=== PATIENT | female | born 2000 | race Two or more races ===

== ENCOUNTER 2024-05-30 13:56 | Inpatient (IN) | payer MEDICAID, OTHER ==
[~2024-05-30] VITALS: Ht 157.5 cm; Wt 62.1 kg
--- NOTE | 2024-05-30 15:11 | ED.PDOC ---
Eye-HPI HPI Comments 23 year old female presents to the ED with chief complaint of uneven pupils and blurry vision. Patient reports she has been experiencing blurred vision for the past 3 days with associated headache, left eye pain, dryness, and eyelid swelling. Patient relays that her blurred vision is normally relieved when blinking, but today her mother noticed her left pupil has been larger than the right pupil, prompting her to go to urgent Care, who referred her to the ER. Patient states she had history of LASIK surgery in 2020 with no follow up with machine tester since then as she has had no vision issues untill now. Patient denies any N/V, fever, chills, vision loss, or eye discharge. Chief Complaint: Eye Problem Time Seen by MD: 15:05 Primary Care Provider: YONATAN AGUAYO Reviewed Notes: Nurses Notes, Medications, Allergies Allergies: Coded Allergies: NO KNOWN ALLERGIES (Unverified , 05/30/24) Information Source: Patient Mode of Arrival: Ambulatory Timing: Days Duration: Since onset Prehospital treatment: None Quality: Pain Eye Location: Bilateral Lids: Location (Left eyelid), Swelling Conjunctiva: Normal Pupils: Unequal EOM: Normal Fundus: Normal Onset: Spontaneous Throat Exposed to: None History of: Post-operative Last Tetanus: Unknown Past Medical History Past Medical History (Other): acne, on isotretinoin Surgical History (Other): Lasik eye surgery x2021 INVENTORY AND PRICING ASSOCIATE History: No Pertinent INVENTORY AND PRICING ASSOCIATE History Family History Family History: Reviewed,noncontributory to illness Social History Smoker: Non-Smoker Alcohol: Denies ETOH Use Drugs: Denies Drug Use Lives In: Home Constitutional: denies: chills, diaphoresis, fatigue, fever, malaise, sweats, weakness, others EENTM: reports: blurred vision, eye pain, others (Pupils uneven, dry eyes, left swollen eyelid); denies: double vision, ear bleeding, ear discharge, ear drainage, ear pain, ear ringing, eye redness, hearing loss, mouth pain, mouth swelling, nasal discharge, nose bleeding, nose congestion, nose pain, keyla tophobia, tearing, throat pain, throat swelling, voice changes Respiratory: denies: cough, hemoptysis, orthopnea, SOB at rest, shortness of breath, SOB with excertion, stridor, wheezing, others Cardiovascular: denies: chest pain, dizzy spells, diaphoresis, Dyspnea on exertion, edema, irregular heart beat, left arm pain, lightheadedness, p alpitations, PND, syncope, others Gastrointestinal: denies: abdomen distended, abdominal pain, blood streaked bowels, constipated, diarrhea, dysphagia, difficulty swallowing, hematemesis, melena, nausea, poor appetite, poor fluid intake, rectal bleeding, rectal pain, vomiting, others Genitourinary: denies: abnormal vagina bleeding, burning, dyspareunia, dysuria, flank pain, frequency, hematuria, incontinence, pain, , vagina discharge, urgency, others Neurological: reports: headache; denies: dizziness, fainting, left sided numbness, left sided weakness, numbness, paresthesia, pre-existing deficit, right sided numbness, right sided weakness, seizure, speech problems, tingling, tremors, weakness, others Musculoskeletal: denies: back pain, gout, joint pain, joint swelling, muscle pain, muscle stiffness, neck pain, others Integumetry: denies: bruises, change in color, change in hair/nails, dryness, laceration, lesions, lumps, rash, wounds, others Allergic/Immunocompromised: denies: Difficulty Healing, Frequent Infections, Hives, Itching, others Hematologic/Lymphatic: denies: anemia, blood clots, easy bleeding, easy bruising, swollen glands, others Endocrine: denies: excessive hunger, excessive sweating, excessive thirst, excessive urination, flushing, intolerance to cold, intolerance to heat, unexplained weight gain, unexplained weight loss, others Psychiatric: denies: anxiety, bipolar disorder, depression, hopeless, panic disorder, schizophrenia, sleepless, suicidal, others All Other Systems: Reviewed and Negative Physical Exam General Appearance: No Apparent Distress HEENT: Other (Anisocoria. Left pupil 4 mm and reactive, right pupil 3 mm and reactive. Extraocular movements are intact. Conjunctiva unremarkable. No periorbital edema or discoloration.) Neck: Full Range of Motion, Normal Inspection Respiratory: Lungs Clear, No Accessory Muscle Use, No Respiratory Distress, Normal Breath Sounds Cardiovascular: No Edema, No JVD, Regular Rate/Rhythm Breast Exam: Deferred Gastrointestinal: Non Tender, Soft Genitalia: Deferred Pelvic: Deferred Rectal: Deferred Extremities: Normal inspection, Normal range of motion, Non-tender, No pedal edema Neurologic: Alert (Oriented x4), Normal Affect, Normal Mood, Other (Ambulatory without difficulty. Cranial nerves 2-12 intact except for presence of anisocoria) Cerebellar Function: NOT DONE Reflexes: NOT DONE Skin: Dry, Normal Color, Warm Lymphatic: NOT DONE Was a procedure done? Was a procedure done?: No EENT DIFF Eye: Other (Physiologic, uveitis, glaucoma, intra-ocular neoplasm, Paloma's syndrome, brain or carotid artery aneurysm/dissection, cavernous sinus lesion, MS, among others) X-Ray, Labs, Meds, VS Vital Signs Date Time Temp Pulse Resp B/P (MAP) Pulse Ox O2 Delivery O2 Flow Rate FiO2 05/30/24 15:55 97.7 05/30/24 15:42 98.9 79 16 135/83 (100) 95 98.9 05/30/24 15:42 79 16 95 Room Air 05/30/24 14:03 98.2 75 16 137/68 (91) 99 Lab Test 05/30/24 15:44 Range/Units White Blood Count 6.3 4.4-10.8 10^3/uL Red Blood Count 4.62 4.0-5.20 10^6/uL Hemoglobin 13.4 12.2-16.2 g/dL Hematocrit 38.6 36.0-46.0 % Mean Corpuscular Volume 83.7 80.0-100.0 fL Mean Corpuscular Hemoglobin 29.1 28.0-32.0 pg Mean Corpuscular Hemoglobin Concent 34.7 32.0-36.0 g/dL Red Cell Distribution Width 13.7 11.8-14.3 % Platelet Count 266 140-450 10^3/uL Mean Platelet Volume 7.6 6.9-10.8 fL Neutrophils (%) (Auto) 55.9 37.0-80.0 % Lymphocytes (%) (Auto) 31.1 10.0-50.0 % Monocytes (%) (Auto) 9.2 0.0-12.0 % Eosinophils (%) (Auto) 2.9 0.0-7.0 % Basophils (%) (Auto) 0.9 0.0-2.0 % Neutrophils # (Auto) 3.5 1.6-8.6 10 ^3/uL Lymphocytes # (Auto) 1.9 0.4-5.4 10 ^3/uL Monocytes # (Auto) 0.6 0-1.3 10 ^3/uL Eosinophils # (Auto) 0.2 0-0.8 10 ^3/uL Basophils # (Auto) 0.1 0-0.2 10 ^3/uL Nucleated Red Blood Cells 0.1 % Prothrombin Time 12.3 H 9.3-11.8 sec Prothrombin Time INR 1.17 H 0.9-1.15 Activated Partial Thromboplast Time 28.2 24.5-34.5 SEC Sodium Level 139 136-145 mmol/L Potassium Level 3.9 3.5-5.1 mmol/L Chloride Level 106 98-107 mmol/L Carbon Dioxide Level 26 20-31 mmol/L Anion Gap 7 5-15 Blood Urea Nitrogen 12 9-23 mg/dL Creatinine 0.73 0.550-1.02 mg/dL Glomerular Filtration Rate Calc 119 >90 mL/min BUN/Creatinine Ratio 16.4 10.0-20.0 Serum Glucose 98 74-106 mg/dL Calcium Level 10.0 8.7-10.4 mg/dL Beta HCG, Quantitative < 0.0 L 1.5-4.2 mIU/mL Current Medications Medications (Trade) Dose Ordered Sig/Summer Route Start Time Stop Time Status Last Admin Acetaminophen (Tylenol Tablet) 1,000 mg ONCE ONCE PO 05/30/24 15:15 05/30/24 15:16 DC 05/30/24 15:55 PROCEDURE(s): HWOCT - HEAD WITHOUT CONTRAST REASON: L anisocoria ORDER NUMBER(s): [id number], ACCESSION NUMBER(s): [id number] CT HEAD WITHOUT CONTRAST INDICATION: L anisocoria COMPARISON: None TECHNIQUE: CT of the head without intravenous contrast. RADIATION DOSE: CTDIvol: 57.72 mGy, DLP: 1021.69 mGy*cm FINDINGS: There is no evidence of acute intracranial hemorrhage, extra-axial collection, mass effect, midline shift, or hydrocephalus. The ventricles, sulci and cisterns are age appropriate. The mccoy-white differentiation is intact. Calvarium is intact. The right cerebellar tonsil protrudes 5 mm below the level of the foramen magnum. There is mild mucosal thickening in the left maxillary sinus. The mastoids are well aerated. The orbits are unremarkable. IMPRESSION: 1. No evidence of acute intracranial abnormalities. If symptoms persist, worsen, or are otherwise clinically unexplained, consider MRI. 2. Low-lying cerebellar tonsils (5 mm). Angio Head/Neck: Findings: Neck: The aortic arch and great vessels are within normal limits. The common carotid arteries, carotid bifurcation, internal and external carotid arteries are within normal limits. Vertebral arteries are within normal limits, with right dominant. No evidence of aneurysm, dissection, or stenosis. The pharynx and upper airway appear normal with no evidence of stricture or focal lesion. No evidence of cervical lymphadenopathy. The thyroid, submandibular, and parotid glands appear normal. Osseous structures and lung apices appear unremarkable. Brain: Intracranial Anterior Circulation: The RIGHT anterior circulation including the right internal carotid artery, middle cerebral artery, and anterior cerebral artery demonstrates no abnormality . The LEFT anterior circulation including the left internal carotid artery, middle cerebral artery, and anterior cerebral artery demonstrates no abnormality. The anterior communicating artery is unremarkable. No posterior communicating arteries are identified. Vertebrobasilar Circulation: The basilar artery is unremarkable. The RIGHT posterior cerebral artery, superior cerebellar artery, and posterior inferior cerebellar artery demonstrate no abnormality. The LEFT posterior cerebral artery, superior cerebellar artery, and posterior inferior cerebellar artery demonstrate no abnormality. Other: The visualized dural sinuses and intradural venous system are unremarkable. No evidence of intracranial mass, mass effect, or abnormal enhancement. The skull base, calvaria, orbits, and overlying soft tissues are intact. The paranasal sinuses, mastoid air cells, and middle ear cavities are clear and well aerated. Impression: 1. Unremarkable angiogram of the head and neck. X-Ray, Labs, Meds, VS Comment 23-year-old female with no significant past medical history presenting with left eye blurred vision, left eye discomfort and anisocoria Vitals unremarkable Exam remarkable for intact cranial nerves except for the presence of anisocoria. The left pupil is 4 mm and reactive, the right pupil is 3 mm and reactive. Rhythm strip independently interpreted by me: Sinus rhythm, rate 75, no ectopy. CBC, basic metabolic panel, hCG and coagulation panel unremarkable for any abnormality of acute significance CT head without contrast unremarkable CT angio head and neck Patient treated with the following in the ED: Tylenol 1 g p.o. Re-evaluation, patient states her eye discomfort has improved. Vitals remained stable, and she has had no new neurologic changes in the ED. Plan is to transfer the patient for higher level of care, as we do not have ophthalmologic services here. Patient will also require brain MRI and neuro evaluation. Attempted transfer to [facility] and [facility]. Both are at capacity and declined transfer. I discussed the case with Dr. Aj Roth, machine tester at [facility]. She stated the patient does not need emergent ophthalmologic evaluation, but does feel the patient would benefit from brain MRI and Neurology evaluation. She felt that the current symptoms are more appropriately address initially by Neurology. If no finding, then the patient can follow-up with an machine tester as an outpatient. Plan will be to admit the patient here for brain MRI and Neurology evaluation. Discussed with Dr. Shaw who will admit the patient. Time of 1ST Reevaluation: 16:05 Reevaluation 1ST: Unchanged Time of 2ND Reevaluation: 18:54 Reevaluation 2ND: Improved Patient Education/Counseling: Diagnosis, Treatment Family Education/Counseling: No Family Present Departure 1 Departure Time of Disposition: 18:54 Impression: Primary Impression: Anisocoria Disposition: ADMITTED INPATIENT Admit to: Tele Condition: Guarded Critical Care Note Critical Care Time?: No Stability Stability form required: No Heart Score Heart Score: Heart Score Response (Comments) Value History N/A 0 EKG N/A 0 Age N/A 0 Risk Factors N/A 0 Troponin N/A 0 Total 0 I personally scribed for ONEAL NESS MD ([email or web address]) on 05/30/24 at 15:11. Electronically submitted by Zeferino Zamorano ([email or web address]). I personally scribed for ONEAL NESS MD ([email or web address]) on 05/30/24 at 18:20. Electronically submitted by Zeferino Zamorano ([email or web address]). I personally scribed for ONEAL NESS MD ([email or web address]) on 05/30/24 at 19:22. Electronically submitted by Zeferino Zamorano ([email or web address]). ONEAL NESS MD May 30, 2024 15:11
[2024-05-30] MEDS: ACETAMINOPHEN 500 MG TAB PO ONE (15:55)
[2024-05-30 16:01] LABS: Basophils # (auto) 0.1 10 ^3/uL (0-0.2); Basophils % (auto) 0.9 % (0.0-2.0); Eosinophils # (auto) 0.2 10 ^3/uL (0-0.8); Eosinophils % (auto) 2.9 % (0.0-7.0); Hematocrit 38.6 % (36.0-46.0); Hemoglobin 13.4 g/dL (12.2-16.2); Lymphocytes # (auto) 1.9 10 ^3/uL (0.4-5.4); Lymphocytes % (auto) 31.1 % (10.0-50.0); Mean Corpuscular Hemoglobin 29.1 pg (28.0-32.0); Mean Corpuscular Hgb Conc. 34.7 g/dL (32.0-36.0); Mean Corpuscular Volume 83.7 fL (80.0-100.0); Monocytes # (auto) 0.6 10 ^3/uL (0-1.3); Monocytes % (auto) 9.2 % (0.0-12.0); Neutrophils # (auto) 3.5 10 ^3/uL (1.6-8.6); Neutrophils % (auto) 55.9 % (37.0-80.0); Nucleated Red Blood Cells % 0.1 %; Platelet Count (auto) 266 10^3/uL (140-450); Red Blood Cells 4.62 10^6/uL (4.0-5.20); Red Cell Distribution Width 13.7 % (11.8-14.3); White Blood Cell 6.3 10^3/uL (4.4-10.8)
[2024-05-30 16:13] LABS: Anion Gap 7 (5-15); Carbon Dioxide 26 mmol/L (20-31); Chloride 106 mmol/L (98-107); Potassium 3.9 mmol/L (3.5-5.1); Sodium 139 mmol/L (136-145)
[2024-05-30 16:19] LABS: BUN/Creatinine Ratio 16.4 (10.0-20.0); Blood Urea Nitrogen 12 mg/dL (9-23); Glucose 98 mg/dL (74-106)
[2024-05-30 16:34] LABS: INR 1.17 (0.9-1.15); Partial Thromboplastin Time 28.2 SEC (24.5-34.5); Prothrombin Time 12.3 sec (9.3-11.8)
--- NOTE | 2024-05-30 17:52 | DVH ---
CT HEAD WITHOUT CONTRAST INDICATION: L anisocoria COMPARISON: None TECHNIQUE: CT of the head without intravenous contrast. RADIATION DOSE: CTDIvol: 57.72 mGy, DLP: 1021.69 mGy*cm FINDINGS: There is no evidence of acute intracranial hemorrhage, extra-axial collection, mass effect, midline s hift, or hydrocephalus. The ventricles, sulci and cisterns are age appropriate. The mccoy-white dif ferentiation is intact. Calvarium is intact. The right cerebellar tonsil protrudes 5 mm below the level of the foramen magnum. There is mild mucosal thickening in the left maxillary sinus. The mastoi ds are well aerated. The orbits are unremarkable. IMPRESSION: 1. No evidence of acute intracranial abnormalities. If symptoms persist, worsen, or are otherwise cl inically unexplained, consider MRI. 2. Low-lying cerebellar tonsils (5 mm).
[2024-05-30] MEDS: IOHEXOL 350 MG/ML 100ML IJ ONE (18:29)
--- NOTE | 2024-05-30 19:19 | DVH ---
EXAM: CT ANGIO HEAD/NECK INDICATION: L anisocoria EXAM DATE: 05/30/2024 06:34 PM COMPARISON: None TECHNIQUE: A noncontrast dataset was obtained. Subsequently, a volumetric data acquisition of the h ead and neck was obtained during the arterial phase of enhancement. A total of 60 mL of Omnipaque 350 was administered intravenously. One or more of the following radiation dose reduction techniques wer e used for this examination: automated exposure control, adjustment of the mA and/or kV according to patient size, use of iterative reconstruction technique. 3-D postprocessing is performed by technologist including MIP imaging Determination of the degree of stenosis in the internal carotid arteries is obtained using measureme nts of distal internal carotid diameter (directly or indirectly) as the denominator for stenosis mandi urement. The method utilized is similar to that utilized in the [place] Symptomatic Carotid E ndarterectomy Trial (NASCET) method. If the degree of stenosis is greater than 30%, the actual percen tage stenosis is given in the body of the report. Radiation Dose Information: CT Dose: CTDI volume is 22.32 mGy. Dose-length product is 818.41 mGy*cm Findings: Neck: The aortic arch and great vessels are within normal limits. The common carotid arteries, carotid bifu rcation, internal and external carotid arteries are within normal limits. Vertebral arteries are with in normal limits, with right dominant. No evidence of aneurysm, dissection, or stenosis. The pharynx and upper airway appear normal with no evidence of stricture or focal lesion. No evidence of cervical lymphadenopathy. The thyroid, submandibular, and parotid glands appear normal. Osseous structures and lung apices appear unremarkable. Brain: Intracranial Anterior Circulation: The RIGHT anterior circulation including the right internal carotid artery, middle cerebral artery, a nd anterior cerebral artery demonstrates no abnormality. The LEFT anterior circulation including the left internal carotid artery, middle cerebral artery, and anterior cerebral artery demonstrates no abnormality. The anterior communicating artery is unremarkable. No posterior communicating arteries are identified. Vertebrobasilar Circulation: The basilar artery is unremarkable. The RIGHT posterior cerebral artery, superior cerebellar artery, and posterior inferior cerebellar ar mervat demonstrate no abnormality. The LEFT posterior cerebral artery, superior cerebellar artery, and posterior inferior cerebellar art duran demonstrate no abnormality. Other: The visualized dural sinuses and intradural venous system are unremarkable. No evidence of intracranial mass, mass effect, or abnormal enhancement. The skull base, calvaria, orbits, and overlying soft tissues are intact. The paranasal sinuses, masto id air cells, and middle ear cavities are clear and well aerated. Impression: 1. Unremarkable angiogram of the head and neck.
--- NOTE | 2024-05-30 20:55 | DVHHP2 ---
History of Present Illness Reason for Visit: Blurry vision History of Present Illness 23-year-old female with no past medical history comes to the ED for evaluation of uneven pupils and blurry vision patient states for the past 3 days she has been having headaches nausea vomiting and swelling of the left eye patient was initially evaluated in urgent care and from urgent care they were recommended that the patient should be seen in the ED on initial ED evaluation ophthalmology was called and ophthalmology recommended that this was not an ophthalmological emergency however patient should be admitted to an inpatient setting in order to complete an MRI and have an evaluation by Neurology to confirmed that this is not an acute neurological defect Patient with no other symptoms at this point in time no fevers chills cough cold or secondary issue secondary to trauma we will admit for further evaluation and management as per ED recommendation Review of Systems Constitutional: No: Fever, Chills, Sweats, Weakness, Malaise, Other Eyes: Vision change; No: Pain, Conjunctivae inflammation, Eyelid inflammation, Other, Redness ENT: No: Ear pain, Ear discharge, Nose pain, Nose discharge, Nose congestion, Mouth pain, Mouth swelling, Throat pain, Throat swelling, Other Respiratory: No: Cough, Dry, Shortness of breath, SOB with excertion, Wheezing, Hemoptysis, Pleuritic Pain, Sputum, Wheezing, Other Cardiovascular: No: Chest Pain, Palpitations, Orthopnea, Paroxysmal Noc. Dyspnea, Edema, Lt Headedness, Other Gastrointestinal: No: Nausea, Vomiting, Abdominal Pain, Diarrhea, Constipation, Melena, Hematochezia, Other Genitourinary: No Dysuria, No Frequency, No Incontinence, No Hematuria, No Retention, No Other Musculoskeletal: No: other, neck pain, shoulder pain, arm pain, back pain, hand pain, leg pain, foot pain Skin: No: Rash, Lesions, Jaundice, Bruising, Other Neurological: No: Weakness, Numbness, Incoordination, Change in speech, Confusion, Seizures, Other Allergies: Coded Allergies: NO KNOWN ALLERGIES (Unverified , 05/30/24) Exam Vital Signs Vital Signs Date Time Temp Pulse Resp B/P (MAP) Pulse Ox O2 Delivery O2 Flow Rate FiO2 05/30/24 15:55 97.7 05/30/24 15:42 79 16 135/83 (100) 95 05/30/24 15:42 Room Air General Appearance: Oriented X3, Cooperative HEENT: Atraumatic, PERRLA (Pupils even), EOMI Respiratory: Clear to auscultation, Normal air movement Cardiovascular: Regular rate, Normal S1, Normal S2 Abdominal: Normal bowel sounds, Soft Extremities: No clubbing, No cyanosis Skin: No rashes, No breakdown Neuro: Normal gait, Normal speech Psych/Mental Status: Mood NL Labs/Xrays Labs Test 05/30/24 15:44 Range/Units White Blood Count 6.3 4.4-10.8 10^3/uL Red Blood Count 4.62 4.0-5.20 10^6/uL Hemoglobin 13.4 12.2-16.2 g/dL Hematocrit 38.6 36.0-46.0 % Mean Corpuscular Volume 83.7 80.0-100.0 fL Mean Corpuscular Hemoglobin 29.1 28.0-32.0 pg Mean Corpuscular Hemoglobin Concent 34.7 32.0-36.0 g/dL Red Cell Distribution Width 13.7 11.8-14.3 % Platelet Count 266 140-450 10^3/uL Mean Platelet Volume 7.6 6.9-10.8 fL Neutrophils (%) (Auto) 55.9 37.0-80.0 % Lymphocytes (%) (Auto) 31.1 10.0-50.0 % Monocytes (%) (Auto) 9.2 0.0-12.0 % Eosinophils (%) (Auto) 2.9 0.0-7.0 % Basophils (%) (Auto) 0.9 0.0-2.0 % Neutrophils # (Auto) 3.5 1.6-8.6 10 ^3/uL Lymphocytes # (Auto) 1.9 0.4-5.4 10 ^3/uL Monocytes # (Auto) 0.6 0-1.3 10 ^3/uL Eosinophils # (Auto) 0.2 0-0.8 10 ^3/uL Basophils # (Auto) 0.1 0-0.2 10 ^3/uL Nucleated Red Blood Cells 0.1 % Prothrombin Time 12.3 H 9.3-11.8 sec Prothrombin Time INR 1.17 H 0.9-1.15 Activated Partial Thromboplast Time 28.2 24.5-34.5 SEC Sodium Level 139 136-145 mmol/L Potassium Level 3.9 3.5-5.1 mmol/L Chloride Level 106 98-107 mmol/L Carbon Dioxide Level 26 20-31 mmol/L Anion Gap 7 5-15 Blood Urea Nitrogen 12 9-23 mg/dL Creatinine 0.73 0.550-1.02 mg/dL Glomerular Filtration Rate Calc 119 >90 mL/min BUN/Creatinine Ratio 16.4 10.0-20.0 Serum Glucose 98 74-106 mg/dL Calcium Level 10.0 8.7-10.4 mg/dL Beta HCG, Quantitative < 0.0 L 1.5-4.2 mIU/mL Assessment/Plan Assessment/Plan Admit to [facility] Uneven pupils Unknown etiology CT scan was completed No acute signs of infection including meningitis No acute signs of pseudotumor cerebri Hydrocephalus Or any other emergent or urgent known neurological deficits Patient with anisocoria recommended for MRI and neurology evaluation Plan discussed with: Patient My Orders Orders - KAYA VELEZ MD Procedure Category Date Status Time * Neurology Consult CONS 05/30/24 Transmitted 20:49 Admit ADMIT 05/30/24 Transmitted 20:49 Code Status CODE 05/30/24 Transmitted 20:49 Vital Signs [facility] 05/30/24 In Process 20:49 Review Orders With SHWETA 05/30/24 In Process Adm. 20:49 Regular Diet DIET 05/31/24 Transmitted Breakfast Sodium Chloride 0.9% [facility] 05/30/24 Logged 21:00 Lorazepam Tablet PHA 05/30/24 Logged (Ativan Tablet) 21:00 Alum & Mag PHA 05/30/24 Logged Hydrox-Simethicone 21:00 Docusate Sodium PHA 05/30/24 Logged Capsule (Colace 21:00 Acetaminophen Tablet PHA 05/30/24 Logged (Tylenol Tablet) 21:00 Temazepam (Restoril) PHA 05/30/24 Logged 21:00 Notify Md Of Changes SHWETA 05/30/24 In Process From Base 20:49 Advance Directive SHWETA 05/30/24 In Process 20:49 Basic Metabolic Panel LAB 05/31/24 Verified 04:00 Complete Blood Count LAB 05/31/24 Verified 04:00 Patient Condition ORDERS 05/30/24 Transmitted 20:49 Allergies SHWETA 05/30/24 In Process 20:49 Hydrocodone-Acet PHA 05/30/24 Logged 5/325mg Tab ([place] 21:00 Ondansetron Hcl PHA 05/30/24 Logged (Zofran) 21:00 Morphine 2mg Iv Q4hprn PHA 05/30/24 Transmitted 21:00 Notify Md Of Changes SHWETA 05/30/24 In Process From Base 20:49 Oxygen By Nasal RT 05/30/24 Transmitted Cannula 20:49 Problem List: (1) Anisocoria Date of Service: May 30, 2024 Billing Provider: KAYA VELEZ MD Common Visit Codes: [id number] INP/OBS CARE (HIGH) KAYA VELEZ MD May 30, 2024 20:55
[2024-05-30] MEDS ORDERED: HYDROcodone-ACET 5/325MG TAB PO PRN (21:00)
[2024-05-30] MEDS ORDERED: ONDANSETRON HCL 4 MG/2 ML VIAL IV PRN (21:00)
[2024-05-30] MEDS ORDERED: MAALOX PLUS or MAALOX 30 ML PO PRN (21:00)
[2024-05-30] MEDS ORDERED: DOCUSATE SOD 100 MG CAP PO PRN (21:00)
[2024-05-30] MEDS ORDERED: TEMAZEPAM 15 MG CAP PO PRN (21:00)
[2024-05-30] MEDS ORDERED: ACETAMINOPHEN 325 MG TAB PO PRN (21:00)
[2024-05-30] MEDS ORDERED: LORazepam 0.5 MG TAB PO PRN (21:00)
[2024-05-30] MEDS ORDERED: MORPHINE SULFATE INJ 2 MG/ml SYRG IV PRN (21:00)
[2024-05-30] MEDS: SODIUM CHLORIDE 0.9% 1,000 ML IV SCH (21:36)
[2024-05-31 03:30] VITALS: BP 118/74; PULSE 95; RESP 18; TEMP 98.8; O2SAT 97
[2024-05-31 05:09] LABS: Basophils # (auto) 0.1 10 ^3/uL (0-0.2); Basophils % (auto) 0.9 % (0.0-2.0); Eosinophils # (auto) 0.2 10 ^3/uL (0-0.8); Eosinophils % (auto) 2.2 % (0.0-7.0); Hematocrit 37.8 % (36.0-46.0); Hemoglobin 13.2 g/dL (12.2-16.2); Lymphocytes # (auto) 1.9 10 ^3/uL (0.4-5.4); Lymphocytes % (auto) 27.4 % (10.0-50.0); Mean Corpuscular Hemoglobin 29.3 pg (28.0-32.0); Mean Corpuscular Hgb Conc. 34.8 g/dL (32.0-36.0); Mean Corpuscular Volume 84.2 fL (80.0-100.0); Monocytes # (auto) 0.6 10 ^3/uL (0-1.3); Monocytes % (auto) 9.1 % (0.0-12.0); Neutrophils # (auto) 4.2 10 ^3/uL (1.6-8.6); Neutrophils % (auto) 60.4 % (37.0-80.0); Platelet Count (auto) 259 10^3/uL (140-450); Red Blood Cells 4.49 10^6/uL (4.0-5.20); Red Cell Distribution Width 13.9 % (11.8-14.3)
[2024-05-31 05:22] LABS: Chloride 104 mmol/L (98-107); Sodium 138 mmol/L (136-145)
[2024-05-31 05:24] LABS: Anion Gap 8 (5-15); Carbon Dioxide 26 mmol/L (20-31)
[2024-05-31 05:29] LABS: BUN/Creatinine Ratio 14.3 (10.0-20.0); Blood Urea Nitrogen 11 mg/dL (9-23); Glucose 105 mg/dL (74-106)
--- NOTE | 2024-05-31 08:46 | DVH ---
EXAMINATION: MRI BRAIN HEAD WO CONTRAST INDICATION: LT EYE PROBLEM SIGHT LOSS COMPARISON: CT HEAD WITHOUT CONTRAST on DOS: 05/30/24 TECHNIQUE: Multiplanar, multisequence magnetic resonance imaging of the brain was performed without the use of i ntravenous contrast. FINDINGS: There is no restricted diffusion. The mccoy and white matter signal is appropriate. There is no eviden ce of hemorrhage, mass, mass effect or midline shift. There is no hydrocephalus or extra-axial fluid collection. The visualized intracranial vasculature demonstrates appropriate flow-voids. There are lo w-lying cerebellar tonsils. The sagittal midline structures appear unremarkable. The calvarium demon strates normal marrow signal. The paranasal sinuses and mastoid air cells are clear. IMPRESSION: 1. Low-lying cerebellar tonsils. 2. Otherwise, unremarkable noncontrast MRI brain. HS:Y
--- NOTE | 2024-05-31 09:12 | DVHINCON2 ---
Date of service: May 31, [address] Shaw Reason for Consultation Anisocoria, etiology unclear, headache, nausea History of Present Illness Ms. Guevara is a 23 years old right-handed female otherwise healthy, the patient came to the hospital on 05/30/2024 with a chief company of uneven pupils size and blurry vision. At this time, she was alert and fully oriented, she provided the following history Starting on 05/28/2024, she developed blurry vision. When she was going through physical examination on 05/30/2024, she noticed both I were blurry Since 05/28/2024, she has bifrontal pressure/ache and headache, four-01/30 On 05/30/2024, she noticed obvious asymmetric pupil size, with right pupil bigger, in that "the collar off the eye) was almost gone. But the meanwhile th ere was no associated eyelid ptosis, bloodshot, abdominal skin skin secretion. She took picture of her eyes, in that I see unequal pupil size, right colon 4-5 mm, left 3 mm without proptosis, abnormal vascular dilatation. She denies a history of unequal pupil size She denies focal weakness numbness, she did not recent fall, injury, nausea, vomiting, coughing CBC, 05/31/2024: Unremarkable PT/INR/PTT, 05/30/2024: 12.3/1.17/28.2 CMP, 05/31/24: Unremarkable CT head, 05/30/2024: 1. No evidence of acute intracranial abnormalities. If symptoms persist, worsen, or are otherwise clinically unexplained, consider MRI. 2. Low-lying cerebellar tonsils (5 mm) CTA head, neck, 05/30/2024: Unremarkable angiogram of the head and neck MRI head, 05/31/2024: 1. Low-lying cerebellar tonsils. 2. Otherwise, unremarkable noncontrast MRI brain (There are low-lying cerebellar tonsils. The sagittal midline structures appear unremarkable) Past Medical History Acne, on isotretinoin Past Surgical History Bilateral LASIK eye surgery [id number] Family History Dyslipidemia Social History She is not a tobacco smoker, no history of drug or alcohol abuse Allergies: Coded Allergies: NO KNOWN ALLERGIES (Unverified , 05/30/24) Current Medications Current Medications Medications (Trade) Dose Ordered Sig/Summer Route PRN Reason Start Time Stop Time Status Last Admin Sodium Chloride 1,000 ml @ 60 mls/hr [id number] IV 05/30/24 21:00 Lorazepam (Ativan Tablet) 0.5 mg Q6HP PRN PO ANXIETY 05/30/24 21:00 Al Hydrox/Mg Hydrox/Simethicone (Maalox Plus) 30 ml Q6HP PRN PO FOR STOMACH DISTRESS 05/30/24 21:00 Docusate Sodium (Colace Capsule) 100 mg BIDPRN PRN PO FOR CONSTIPATION 05/30/24 21:00 Acetaminophen (Tylenol Tablet) 650 mg Q6HP PRN PO PAIN SCALE 1-3 OR TEMP>100.4 05/30/24 21:00 Temazepam (Restoril) 15 mg QHSP PRN PO FOR INSOMNIA 05/30/24 21:00 Acetaminophen/ Hydrocodone Bitart ([place] 5/325MG Tab) 1 tab Q4HP PRN PO MODERATE PAIN (4-6 PAIN SCALE) 05/30/24 21:00 Ondansetron HCl (Zofran) 4 mg Q4HP PRN IV NAUSEA / VOMITING 05/30/24 21:00 Morphine Sulfate 2 mg Q4HPRN PRN IV SEVERE PAIN (7-10 PAIN SCALE) 05/30/24 21:00 Review of Systems As above, the other systems are negative Vital Signs Vital Signs Date Time Temp Pulse Resp B/P (MAP) Pulse Ox O2 Delivery O2 Flow Rate FiO2 05/31/24 03:30 98.8 95 18 118/74 (89) 97 98.8 05/30/24 15:42 Room Air Physical Exam GENERAL EXAM: General: the patient is well developed and nourished. No acute distress. HEENT: Normocephalic, neck is supple, no carotid bruits. No mass. RESPIRATORY: Normal respiratory effort with symmetrical lung expansion. Lungs clear to auscultation. CARDIOVASCULAR: Regular rate and rhythm with no murmurs. S1, S2. ABDOMEN: Soft, nontender, normal bowel sound NEUROLOGICAL: MENTAL STATUS: Awake and alert. Oriented to person, place, time and general circumstances. Able to give personal history. The patient is aware of recent events SPEECH, LANGUAGE, HIGHER CORTICAL FUNCTION: no aphasia or dysathria. CRANIAL NERVES: #2: Intact visual cornell to confrontation. The optic discs were sharp. #3,4,6: Pupils are equal, round and reactive. EOMs full and conjugate. No nystagmus. No eyelid process, no abnormal vascular dilatation, no abnormal skin secretion #5: Facial sensation intact in all three divisions bilaterally. Mandibular strength intact. #7: Facial muscles symmetrical and strength intact. #8: Hearing grossly normal to voice. #9,10: Uvula and soft palate rise in the midline. Swallow and voice are normal. #11: Trapezius and sternomastoid strength intact bilaterally. #12: Tongue midline. No fasciculations or atrophy. SENSATION: Sensation to touch and pinprick is normal. MOTOR: Normal tone in the upper and lower extremity. Normal muscle bulk. No fasciculations. No abnormal movements or posturing. Muscle strength of the major groups in the upper extremities is 5/5. Muscle strength of the major groups in the lower extremities is 5/5. REFLEXES: Deep tendon reflexes normal and symmetrical. No pathological reflexes. CEREBELLAR/COORDINATION: Finger to nose and heel to kaminski are normal bilaterally. GAIT/STATION: Within normal limits Labs/Diagnostic Data Labs Test 05/31/24 04:39 05/30/24 15:44 Range/Units White Blood Count 7.0 4.4-10.8 10^3/uL Red Blood Count 4.49 4.0-5.20 10^6/uL Hemoglobin 13.2 12.2-16.2 g/dL Hematocrit 37.8 36.0-46.0 % Mean Corpuscular Volume 84.2 80.0-100.0 fL Mean Corpuscular Hemoglobin 29.3 28.0-32.0 pg Mean Corpuscular Hemoglobin Concent 34.8 32.0-36.0 g/dL Red Cell Distribution Width 13.9 11.8-14.3 % Platelet Count 259 140-450 10^3/uL Mean Platelet Volume 7.8 6.9-10.8 fL Neutrophils (%) (Auto) 60.4 37.0-80.0 % Lymphocytes (%) (Auto) 27.4 10.0-50.0 % Monocytes (%) (Auto) 9.1 0.0-12.0 % Eosinophils (%) (Auto) 2.2 0.0-7.0 % Basophils (%) (Auto) 0.9 0.0-2.0 % Neutrophils # (Auto) 4.2 1.6-8.6 10 ^3/uL Lymphocytes # (Auto) 1.9 0.4-5.4 10 ^3/uL Monocytes # (Auto) 0.6 0-1.3 10 ^3/uL Eosinophils # (Auto) 0.2 0-0.8 10 ^3/uL Basophils # (Auto) 0.1 0-0.2 10 ^3/uL Nucleated Red Blood Cells 0.0 % Sodium Level 138 136-145 mmol/L Potassium Level 4.0 3.5-5.1 mmol/L Chloride Level 104 98-107 mmol/L Carbon Dioxide Level 26 20-31 mmol/L Anion Gap 8 5-15 Blood Urea Nitrogen 11 9-23 mg/dL Creatinine 0.77 0.550-1.02 mg/dL Glomerular Filtration Rate Calc 112 >90 mL/min BUN/Creatinine Ratio 14.3 10.0-20.0 Serum Glucose 105 74-106 mg/dL Calcium Level 10.0 8.7-10.4 mg/dL Prothrombin Time 12.3 H 9.3-11.8 sec Prothrombin Time INR 1.17 H 0.9-1.15 Activated Partial Thromboplast Time 28.2 24.5-34.5 SEC Beta HCG, Quantitative < 0.0 L 1.5-4.2 mIU/mL Assessment Anisocoria, evident in the picture in her iPhone, not evident on today's examination (I took a picture with her iPhone), and she has unremarkable CTA of neck and head, likely is a benign phenomenon Blurry vision ? Chiari I malformation Plan/Recommendation Monitoring Supportive treatment Telemetry CT chest More recommendation per clinical course Plan discussed with: Patient AUDRA DUPREE MD May 31, 2024 09:12
--- NOTE | 2024-05-31 11:44 | DVH ---
Procedure: CT CHEST WITHOUT CONTRAST Reason for study/Clinical History: Anisocoria Comparison Study: CT angio head and neck 05/30/2024 Exam Date: 05/31/2024 11:14 AM TECHNIQUE: Multidetector CT of the chest was performed from the lung apices to the upper abdomen with out the use of intravenous contract. Axial, coronal and sagittal multiplanar reformats were performed . Radiation Dose Information: CT Dose: CTDI volume is 5.07 mGy. Dose-length product is 195.08 mGy*cm The dose indicators for CT are the volume Computed Tomography (CT) Dose Index (CTDIvol) and the Dose Length Product (DLP), and are measured in units of mGy and mGy-cm, respectively. These indicators are not patient dose, but values generated from the CT scanner acquisition factors. The report includes radiation exposure data for exposures received during this examination. FINDINGS: Lower neck: Normal thyroid. Lungs: No focal consolidation, pleural effusion or pneumothorax. Heart/Vascular Structures: Normal heart size. No pericardial effusion. Lymph Nodes: No adenopathy Pleura: No pleural effusion or significant pneumothorax. Musculoskeletal: No acute osseous abnormality. Soft tissues: Normal. Upper abdomen: Limited portions of the upper abdomen are unremarkable. IMPRESSION: 1. No CT evidence of acute intrathoracic abnormality. Radiation optimization: All CT scans at this facility use at least one of these dose optimization seymour hniques: automated exposure control mA and/or kV adjustment per patient size (includes targeted exam s where dose is matched to clinical indication) or iterative reconstruction. HS:Y
--- NOTE | 2024-05-31 11:59 | DVHPN2 ---
Subjective The patient is seen and examined at bedside. Still complain of blurred vision Reviewed: Care Plan, H&P, Labs, Medications, Previous Orders, Radiology Changes from previous H/P or p: No Changes Eyes: No Pain; Vision change; No Conjunctivae inflammation, No Eyelid inflammation, No Other, No Redness ENT: No Ear pain, No Ear discharge, No Nose pain, No Nose discharge, No Nose congestion, No Mouth pain, No Mouth swelling, No Throat pain, No Throat swelling, No Other Cardiovascular: No Chest Pain, No Palpitations, No Orthopnea, No Paroxysmal Noc. Dyspnea, No Edema, No Lt Headedness, No Other Respiratory: No Cough, No Dry, No Shortness of breath, No SOB with excertion, No Wheezing, No Hemoptysis, No Pleuritic Pain, No Sputum, No Other Gastrointestinal: No Nausea, No Vomiting, No Abdominal Pain, No Diarrhea, No Constipation, No Melena, No Hematochezia, No Other Genitourinary: No Dysuria, No Frequency, No Incontinence, No Hematuria, No Retention, No Other Musculoskeletal: No other, No neck pain, No shoulder pain, No arm pain, No back pain, No hand pain, No leg pain, No foot pain Skin: No Rash, No Lesions, No Jaundice, No Bruising, No Other Objective Vitals Vital Signs Date Time Temp Pulse Resp B/P (MAP) Pulse Ox O2 Delivery O2 Flow Rate FiO2 05/31/24 03:30 98.8 95 18 118/74 (89) 97 98.8 05/30/24 15:42 Room Air General Appearance: Alert, Oriented X3, Cooperative, No acute distress HEENT: Atraumatic, PERRLA, EOMI, Mucous membr. moist/pink Neck: Supple Lungs: Clear to auscultation, Normal air movement Cardiovascular: Regular rate, Normal S1, Normal S2, No murmurs, Gallops, Rubs Abdomen: Normal bowel sounds, Soft, No tenderness Neuro: Cranial nerves 3-12 NL Psych/Mental Status: Mental status NL Medications Current Medications Medications Dose Ordered Sig/Summer Route Start Time Stop Time Status Last Admin Dose Admin Sodium Chloride 1,000 ml @ 60 mls/hr [id number] IV 05/30/24 21:00 Lorazepam 0.5 mg Q6HP PRN PO 05/30/24 21:00 Al Hydrox/Mg Hydrox/Simethicone 30 ml Q6HP PRN PO 05/30/24 21:00 Docusate Sodium 100 mg BIDPRN PRN PO 05/30/24 21:00 Acetaminophen 650 mg Q6HP PRN PO 05/30/24 21:00 Temazepam 15 mg QHSP PRN PO 05/30/24 21:00 Acetaminophen/ Hydrocodone Bitart 1 tab Q4HP PRN PO 05/30/24 21:00 Ondansetron HCl 4 mg Q4HP PRN IV 05/30/24 21:00 Morphine Sulfate 2 mg Q4HPRN PRN IV 05/30/24 21:00 Laboratory Results Laboratory Tests 05/31/24 04:39 Chemistry Test 05/30/24 15:44 05/31/24 04:39 Calcium Level 10.0 mg/dL (8.7-10.4) 10.0 mg/dL (8.7-10.4) Coagulation Test 05/30/24 15:44 Prothrombin Time 12.3 sec (9.3-11.8) H Prothrombin Time INR 1.17 (0.9-1.15) H Activated Partial Thromboplast Time 28.2 SEC (24.5-34.5) Labs and/or images reviewed: Labs reviewed by me Assessment/Plan Assessment/Plan Anisocoria unknown etiology Continuing current management. Review MRI showed no abnormality. CT scan was also completed No acute signs of infection including meningitis No acute signs of pseudotumor cerebri Hydrocephalus Or any other emergent or urgent known neurological deficits Waiting for Neurology to evaluate the patient Plan discussed with: Patient My Orders Orders - CYN BLOCK MD Procedure Category Date Status Time Complete Blood Count LAB 06/01/24 Verified 05:00 Basic Metabolic Panel LAB 06/01/24 Verified 05:00 Date of Service: May 31, 2024 Billing Provider: CYN BLOCK MD Common Visit Codes: [id number] INP/OBS CARE(HIGH) CYN BLOCK MD May 31, 2024 11:59
--- NOTE | 2024-06-01 06:12 | PRN ---
Misceleneous Note Note Note The patient apparently elope from ED after I saw her today. 05/31/2024 CYN BLOCK MD Jun 01, 2024 06:12
== END 2024-05-31 16:49 | disposition left against medical advice (07) | DRG 82 ==
LOC: ER 13:56 → OVERFLOW 20:49
PROVIDERS: ADMIT Hospitalist; ATTEND Internal Medicine
DX: H57.02 Anisocoria (principal); G91.9 Hydrocephalus, unspecified; G93.5 Compression of brain; Z83.438 Family history of other disorder of lipoprotein metabolism and other lipidemia
CPT/HCPCS: 36415; 70450; 70496; 70551; 71250; 80048; 84702; 85025; 85610; 85730; G0378